=== PATIENT | male | born 1990 | race Caucasian/White ===

== ENCOUNTER 2020-06-11 04:51 | Emergency (ER) | payer SELFPAY ==
[2020-06-11 05:15] VITALS: BP 127/81
[2020-06-11] MEDS ORDERED: PENICILLIN V POTASSIUM 500 MG TABLET PO ONE ×2 (08:18→09:00)
--- NOTE | 2020-06-11 08:22 | ER Document Report ---
ED Oral Problem - General Chief Complaint: Toothache Stated Complaint: TOOTH PAIN Time Seen by Provider: 06/11/20 08:16 Notes: HPI: 29-year-old male who presents today with some dental pain starting last night. He states he woke up with it. He denies any difficulty breathing or swallowing. He denies any fevers, vomiting, leg swelling, or neck stiffness. He does not have a dentist and does not have insurance. ROS: See HPI Reviewed vital signs and nursing note as charted by RN. PHYSICAL EXAM: CONSTITUTIONAL: Alert and oriented and responds appropriately to questions. Well-appearing; well-nourished HEAD: Normocephalic; atraumatic EYES: PERRL; full extraocular range of motion ENT: Patient has no lip, tongue, posterior pharyngeal swelling. Patient does have some dental decay with no obvious intraoral abscess to the right lower posterior molar NECK: Supple without meningismus; non-tender; no cervical lymphadenopathy, no masses NEURO: CN 2-12 intact - Related Data Allergies/Adverse Reactions: No Known Allergies Allergy (Verified 06/11/20 08:33) Past Medical History - Social History Smoking Status: Current Every Day Smoker Family History: Reviewed & Not Pertinent Physical Exam - Vital signs Vitals: Temp Pulse Resp BP Pulse Ox 97.9 F 66 16 127/81 H 95 06/11/20 05:14 06/11/20 05:14 06/11/20 05:14 06/11/20 05:14 06/11/20 05:14 Course - Re-evaluation Re-evalutation: 06/11/20 08:21 Given the history and physical and is nontoxic afebrile male with no facial swelling, dental decay, I will provide antibiotics, pain meds, discharge the patient home with outpatient dental follow-up with your dental list that we have provided. Strict return precautions have been explained. - Vital Signs Vital signs: Temp Pulse Resp BP Pulse Ox 97.9 F 66 16 127/81 H 95 06/11/20 05:14 06/11/20 05:14 06/11/20 05:14 06/11/20 05:14 06/11/20 05:14 - Laboratory Results Critical Laboratory Results Reviewed: No Critical Results - Radiology Results Critical Radiology Results Reviewed: No Critical Results Discharge - Discharge Clinical Impression: Pain, dental Condition: Good Disposition: HOME, SELF-CARE Additional Instructions: Come back immediately for any increased pain, facial swelling, difficulty breathing or swallowing, or any other acute problems. Prescriptions: Hydrocodone/Acetaminophen [[place] 5-325 mg Tablet] 1 tab PO Q8 #12 tablet Hydrocodone/Acetaminophen [[place] 5-325 mg Tablet] 1 tab PO Q8 #12 tablet Penicillin V Potassium [Penicillin Vk 500 mg Tablet] 500 mg PO BID #20 tablet
== END 2020-06-11 09:33 | disposition home or self-care (01) ==
LOC: ER 04:51
DX: K08.9 Disorder of teeth and supporting structures, unspecified (principal); F17.200 Nicotine dependence, unspecified, uncomplicated
CPT/HCPCS: 99284